=== PATIENT | male | born 1985 | race Caucasian/White ===

== ENCOUNTER 2023-01-26 14:53 | Inpatient (IN) | payer OTHER ==
[~2023-01-26] VITALS: Ht 175.3 cm; Wt 81.6 kg
[2023-01-26 15:23] VITALS: BP 130/87
[2023-01-26 16:07] LABS: BASO % 0.2 % (0.0-1.0); EOS # 0.1 10*3/uL (0.0-0.4); EOS % 0.9 % (1.0-4.0); HEMATOCRIT 47.2 % (42.0-52.0); LYMPH # 1.3 10*3/uL (1.3-4.4); MEAN CELL VOLUME 85.7 fl (80.0-94.0); MEAN CORPUSCULAR HGB 30.3 pg (27.0-31.0); MEAN CORPUSCULAR HGB CONC 35.4 g/dl (33.0-37.0); MEAN PLATELET VOLUME 9.9 fl (9.6-12.3); MONO # 0.9 10*3/uL (0.1-1.0); MONO % 6.2 % (3.0-9.0); NEUT # 11.7 10*3/uL (2.3-7.9); NEUT % 83.4 % (47.0-73.0); PLATELET COUNT AUTOMATED 228 10*3/uL (130-400); RED BLOOD COUNT 5.51 10*6/uL (4.50-5.90); WHITE BLOOD COUNT 14.1 10*3/uL (4.8-10.8)
[2023-01-26 16:31] LABS: ALKALINE PHOSPHATASE 103 U/L (46-116); BUN 15 mg/dl (9-23); CHLORIDE 108 mmol/L (98-107); LIPASE 52 U/L (12-53); POTASSIUM 3.9 mmol/L (3.4-5.1); SGPT/ALT 30 U/L (10-49); TOTAL PROTEIN 7.2 gm/dL (6.0-8.0)
[2023-01-26 17:25] LABS: BILIRUBIN Negative (Negative); BLOOD Negative (Negative); CLARITY Clear (Clear); COLOR Yellow (Yellow); GLUCOSE Negative (Negative); KETONE Negative (Negative); LEUKO ESTERASE Negative (Negative); NITRITE Negative (Negative); PH 6.5 (4.5-8.0); UROBILINOGEN 0.2 E.U./dl (0.0-1.0)
[2023-01-26 17:35] LABS: BACTERIA TRACE; EPITHELIAL CELLS 0-2; RBC 0-2 rbc/hpf (0-2); WBC 0-2 wbc/hpf (0-5)
[2023-01-26 18:40] VITALS: BP 128/74
[2023-01-26 23:01] VITALS: BP 130/78
[2023-01-26 23:16] VITALS: BP 114/69
[2023-01-26 23:31] VITALS: BP 128/79
[2023-01-26 23:46] VITALS: BP 128/84
[2023-01-27 00:01] VITALS: BP 120/76
[2023-01-27 00:05] VITALS: BP 122/84
[2023-01-27 07:06] LABS: BASO % 0.3 % (0.0-1.0); EOS # 0.1 10*3/uL (0.0-0.4); EOS % 0.5 % (1.0-4.0); HEMATOCRIT 47.4 % (42.0-52.0); LYMPH # 1.6 10*3/uL (1.3-4.4); LYMPH % 13.6 % (27.0-41.0); MEAN CORPUSCULAR HGB 29.9 pg (27.0-31.0); MEAN CORPUSCULAR HGB CONC 33.3 g/dl (33.0-37.0); MONO # 0.9 10*3/uL (0.1-1.0); NEUT # 9.1 10*3/uL (2.3-7.9); NEUT % 77.3 % (47.0-73.0); PLATELET COUNT AUTOMATED 202 10*3/uL (130-400); RED BLOOD COUNT 5.28 10*6/uL (4.50-5.90); RED CELL DISTRI WIDTH 12.5 % (0-14.5); WHITE BLOOD COUNT 11.8 10*3/uL (4.8-10.8)
[2023-01-27 07:30] LABS: BUN 15 mg/dl (9-23); CHLORIDE 106 mmol/L (98-107); CHOLESTEROL 153 mg/dL (<200); LDL CHOLESTEROL 97 mg/dL (9-159); POTASSIUM 4.7 mmol/L (3.4-5.1); TRIGLYCERIDES 52 mg/dl (<150)
[2023-01-27 07:57] LABS: MEAN CELL VOLUME 89.8 fl (80.0-94.0)
[2023-01-27 08:00] VITALS: BP 134/71
[2023-01-27] MEDS ORDERED: HYDROCODONE-AC1 EAC1 PO (10:30)
[2023-01-27] MEDS ORDERED: AMOX-CLAV 875-1 EACH PO (10:30)
[2023-01-27] MEDS ORDERED: COLACE100 MG PO (10:30)
== END 2023-01-27 11:07 | disposition home or self-care (01) | DRG 343 ==
LOC: ED 14:53 → 5E 19:05 → EDHOLD 19:05 → 5E 20:57
PROVIDERS: Internal Medicine; Physician Assistant Medical; Surgery; ADMIT Internal Medicine; ATTEND Internal Medicine
PROC: 0DTJ4ZZ Resection of Appendix, Percutaneous Endoscopic Approach (ICD-10-PCS; principal; 2023-01-26)
DX: K35.80 Unspecified acute appendicitis (principal); E87.8 Other disorders of electrolyte and fluid balance, not elsewhere classified; D72.9 Disorder of white blood cells, unspecified; R79.82 Elevated C-reactive protein (CRP)